=== PATIENT | male | born 1935 | race Caucasian/White ===

== ENCOUNTER 2022-09-15 13:54 | Inpatient (IN) | payer MEDICARE, MEDICAID ==
[~2022-09-15] VITALS: Ht 165.1 cm; Wt 46.3 kg
--- NOTE | 2022-09-15 14:00 | NUR ---
RECEIVED PT 87 YRS MALE CAME FROM HOME [facility] CALLED FOR PT POOR APPTED AND REFUSED EAT AND ELEVATED BLOOD SUGER
--- NOTE | 2022-09-15 14:45 | NUR ---
ACCU CHECK DONE 529 DR. SCHMIDT NOTEFED
--- NOTE | 2022-09-15 14:55 | NUR ---
TO CT SCAN OF HEAD VIA PRISCILA
[2022-09-15] MEDS ORDERED: IV NS 0.9% 1,000 ML BAG IV ONE ×2 (15:00→17:00)
--- NOTE | 2022-09-15 15:43 | NUR ---
COVED SWAB SENT TO LAB
[2022-09-15 16:23] LABS: BASOPHILS % (AUTO) 0.4 % (0.0-2.0); EOSINOPHILS % (AUTO) 0.3 % (0.0-6.0); HEMATOCRIT 42 % (39-51); HEMOGLOBIN 13.9 g/dL (13.5-17.5); LYMPHOCYTES # (AUTO) 1.3 K/uL (0.8-4.8); LYMPHOCYTES % (AUTO) 18.4 % (20.0-44.0); MEAN CORPUSCULAR HGB CONC 33 g/dl (31.0-36.0); MEAN CORPUSCULAR VOLUME 94 fL (80-96); MONOCYTES # (AUTO) 0.6 K/uL (0.1-1.30); MONOCYTES % (AUTO) 8.2 % (2.0-12.0); NEUTROPHILS # (AUTO) 5.1 K/uL (1.8-8.9); NEUTROPHILS % (AUTO) 72.7 % (43.0-81.0); PLATELET COUNT (AUTO) 196 K/uL (150-450); RED BLOOD CELL COUNT(AUTO) 4.43 MIL/uL (4.5-6.0); WHITE BLOOD COUNT (AUTO) 6.9 K/uL (4.3-11.0)
[2022-09-15 16:41] LABS: ALANINE AMINOTRANSFERASE 14 U/L (12-78); ALBUMIN 3.5 g/dL (3.4-5.0); ALKALINE PHOSPHATASE 132 U/L (46-116); ASPARTATE AMINOTRANSFERASE 9 U/L (15-37); BILIRUBIN,DIRECT 0.2 mg/dL (0.0-0.2); BILIRUBIN,TOTAL 0.7 mg/dL (0.2-1.0); CALCIUM, SERUM 9.2 mg/dL (8.5-10.1); CARBON DIOXIDE 22 mmol/L (21-32); CHLORIDE 91 mmol/L (98-107); CREATININE 3.6 mg/dL (0.6-1.3); MAGNESIUM 2.6 mg/dL (1.8-2.4); PHOSPHORUS 5.5 mg/dL (2.5-4.9); POTASSIUM 4.7 mmol/L (3.5-5.1); SODIUM SERUM 127 mmol/L (136-145); TOTAL PROTEIN, SERUM 7.4 g/dL (6.4-8.2); UREA NITROGEN, BLOOD 79 mg/dL (7-18)
[2022-09-15 16:53] LABS: ALCOHOL, BLOOD < 3 mg/dL (0-0); GLUCOSE 558 mg/dL (74-106); SERUM AMMONIA 10 umol/L (11-32)
[2022-09-15] MEDS ORDERED: INSULIN REGULAR, HUMAN 100 UNIT/ML 10 ML VIAL IV ONE (17:00)
--- NOTE | 2022-09-15 17:00 | NUR ---
CALLED NURSING SUP REGARDING PT BED
[2022-09-15 17:20] LABS: MAGNESIUM 2.2 mg/dL (1.8-2.4)
[2022-09-15 17:30] LABS: THYROID STIMULATING HORMONE 1.967 uIU/mL (0.358-3.74)
[2022-09-15] MEDS ORDERED: ONDANSETRON HCL/PF 4 MG/2 ML VIAL IVP PRN (17:30)
[2022-09-15] MEDS ORDERED: MAG HYDROX/AL HYDROX/SIMETH 30 ML UDC PO PRN (17:30)
[2022-09-15] MEDS ORDERED: ZOLPIDEM TARTRATE 5 MG TABLET PO PRN (17:30)
[2022-09-15] MEDS ORDERED: MAGNESIUM HYDROXIDE 30 ML UDC PO PRN (17:30)
[2022-09-15] MEDS ORDERED: ACETAMINOPHEN 325 MG TABLET PO PRN (17:30)
[2022-09-15] MEDS ORDERED: Z GUARD REMEDY 4 OZ OINT TP PRN (17:30)
[2022-09-15] MEDS ORDERED: DEXTROSE 50%-WATER 50 ML DISP.SYRIN IV PRN (17:30)
[2022-09-15] MEDS ORDERED: INSULIN REGULAR, HUMAN 100 UNIT/ML 10 ML VIAL ONE (17:32)
--- NOTE | 2022-09-15 17:40 | NUR ---
UA SENT TO LAB
[2022-09-15] MEDS: BLOOD SUGAR DIAGNOSTIC 1 EACH STRIP VI SCH ×2 (18:30→22:11)
--- NOTE | 2022-09-15 18:30 | NUR ---
[facility] AT BED SIDE RODERICK MORENO ( [phone]
[2022-09-15] MEDS: IV NS 0.9% 1,000 ML IV SCH (18:33)
[2022-09-15 18:47] LABS: BILIRUBIN,URINE NEGATIVE (NEGATIVE); COLOR,URINE YELLOW (YELLOW); LEUKOCYTE ESTERASE ,URINE NEGATIVE (NEGATIVE); NITRITE, URINE NEGATIVE (NEGATIVE); PH,URINE 5.5 (5.0-8.0); PROTEIN,URINE TRACE mg/dl (NEGATIVE); UGLUCOSE 3+ mg/dL (NEGATIVE); UROBILINOGEN,URINE 0.2 EU/dL (0.2)
[2022-09-15 18:55] LABS: MAGNESIUM 2.1 mg/dL (1.8-2.4); PHOSPHORUS 3.7 mg/dL (2.5-4.9)
--- NOTE | 2022-09-15 19:06 | NUR ---
BED GIVEN 119-2
--- NOTE | 2022-09-15 19:20 | NUR ---
HAND OFF CATRINE RN
--- NOTE | 2022-09-15 19:42 | NUR ---
REPORT GIVEN TO CIELO RUELAS. PT GOING TO 117-2.
[2022-09-15 20:00] VITALS: BP 133/62
--- NOTE | 2022-09-15 20:00 | NUR ---
CANE FLUME CHUTE OPERATOR NOTES: REPORT RECEIVED FROM GLOVE TURNER AND FORMERCIELO COSTELLO. PT TRANSFERRED TO [facility] FROM ER VIA [facility]. PLACED IN ROOM 117 BED 2. PT AWAKE, ALERT/ORIENTED X 1-2 AND VERBALLY RESPONSIVE. [place] SPEAKING ONLY. ON ROOM AIR AND PT TOLERATED WELL. O2 SAT 98%. IV ACCESS ON LFA#20G INTACT AND PATENT. NO S/S OF INFILTRATIONS. NO C/O PAIN OR DISCOMFORT. NO ACUTE DISTRESS. ASSESSED WHOLE BODY. NO OPEN SKIN OR SKIN DISCOLORATIONS. ALL SAFETY MEASURES IN PLACE. SIDE RAILS UP X3, BED IN LOWEST POSITION AND LOCKED. PLACE CALL LIGHT WITH IN REACH. WILL CONTINUE TO MONITOR
[2022-09-15 20:05] LABS: BACTERIA,URINE None seen /HPF (None Seen); SQUAMOUS EPITHELIAL CELL,UR 0-2 /HPF (None Seen); WBC,URINE 0-2 /HPF (0-3)
[2022-09-15] MEDS: *INSULIN REGULAR(HUMULIN R)HUM 100 UNIT/ML VIAL SQ PRN (22:11)
--- NOTE | 2022-09-15 22:12 | NUR ---
RN NOTES: PT'S BLOOD SUGAR 94. NO COVERAGE GIVEN. NO S/S OF HYPER/HYPOGLYCEMIA. WILL CONTINUE TO MONITOR
[2022-09-16] VITALS: BP 140/68
[2022-09-16] MEDS: IV NS 0.9% 1,000 ML IV SCH (03:55)
[2022-09-16 04:00] VITALS: BP 136/61
--- NOTE | 2022-09-16 06:45 | NUR ---
RN CLOSING NOTES: PT AWAKE, ALERT/ORIENTED X 1-2 WITH CONFUSION AND VERBALLY RESPONSIVE. [place] SPEAKING ONLY. ON ROOM AIR AND PT TOLERATED WELL. O2 SAT 98%. IV ACCESS ON LFA#20G INTACT AND PATENT. NO S/S OF INFILTRATIONS. NS RUNNING AT 100CC/HR. NO C/O PAIN OR DISCOMFORT. NO ACUTE DISTRESS. ALL DUE MED GIVEN ORDERED. PT HAD EPISODES OF GETTING UP FROM THE UNASSISTED, TRYING TO REMOVE THE TELE MONITORING AND IV ACCESS. APPLIED BILATERAL SOFT RESTRAINT. RELEASED Q 2 HOURS TO CHECK CIRCULATION. PT HAD 3X LOOSE STOOL. COLLECTED STOOL FOR C-DIFF. ALL SAFETY MEASURES IN PLACE. SIDE RAILS UP X3, BED IN LOWEST POSITION AND LOCKED. PLACE CALL LIGHT WITH IN REACH. WILL ENDORSE TO MORNING SHIFT NURSE.
--- NOTE | 2022-09-16 07:24 | NUR ---
READINESS PARAPROFESSIONAL OPENING NOTES: PATIENT RECEIVED SLEEPING. ON ROOM AIR WITH NO S/S OF SOB OR RESPIRATORY DISTRESS. BREATHING EVEN AND UNLABORED. ON TELE MONITOR. IV ACCESS ON LFA#20G INTACT AND PATENT RUNNING NS A2 100CC/HR. CONDOM CATHETER IN PLACE DRAINING URINE TO GRAVITY. BILATERAL WRIST RESTRAINTS IN PLACE. ALL SAFETY MEASURES IN PLACE WITH SIDE RAILS UP X3, BED IN LOWEST POSITION AND LOCKED AND CALL LIGHT WITH IN REACH. WILL CONTINUE TO MONITOR.
[2022-09-16 07:29] LABS: BASOPHILS % (AUTO) 0.3 % (0.0-2.0); EOSINOPHILS % (AUTO) 0.5 % (0.0-6.0); HEMATOCRIT 36 % (39-51); HEMOGLOBIN 12.2 g/dL (13.5-17.5); LYMPHOCYTES # (AUTO) 1.3 K/uL (0.8-4.8); MEAN CORPUSCULAR HGB CONC 34 g/dl (31.0-36.0); MEAN CORPUSCULAR VOLUME 93 fL (80-96); MONOCYTES # (AUTO) 0.7 K/uL (0.1-1.30); NEUTROPHILS # (AUTO) 6.5 K/uL (1.8-8.9); NEUTROPHILS % (AUTO) 76.2 % (43.0-81.0); PLATELET COUNT (AUTO) 189 K/uL (150-450); RED BLOOD CELL COUNT(AUTO) 3.89 MIL/uL (4.5-6.0); WHITE BLOOD COUNT (AUTO) 8.5 K/uL (4.3-11.0)
[2022-09-16 07:51] LABS: CALCIUM, SERUM 8.4 mg/dL (8.5-10.1); CARBON DIOXIDE 22 mmol/L (21-32); CHLORIDE 104 mmol/L (98-107); CREATININE 2.2 mg/dL (0.6-1.3); GLUCOSE 261 mg/dL (74-106); PHOSPHORUS 3.1 mg/dL (2.5-4.9); POTASSIUM 3.5 mmol/L (3.5-5.1); SODIUM SERUM 138 mmol/L (136-145); UREA NITROGEN, BLOOD 55 mg/dL (7-18)
[2022-09-16] MEDS: BLOOD SUGAR DIAGNOSTIC 1 EACH STRIP VI SCH ×4 (07:57→22:07)
[2022-09-16 08:00] VITALS: BP 162/90
--- NOTE | 2022-09-16 09:55 | NUR ---
PATIENT PULLED OFF CONDOM CATHETER. WAS ABLE TO URINATE IN DIAPER.
--- NOTE | 2022-09-16 11:07 | NUR ---
INSULIN NOT ADMINISTERED IN AM DUE TO INSULIN NOT BEING AVAILABLE. PHARMACY WAS NOTIFIED. DID NOT RECEIVE UNTIL CLOSE TO NEXT ACCU CHECK SCHEDULED.
[2022-09-16] MEDS: INSULIN REGULAR, HUMAN 100 UNIT/ML 3 ML VIAL SQ PRN ×2 (11:32→16:47)
[2022-09-16 15:01] LABS: OCCULT BLOOD STOOL NEGATIVE (NEGATIVE)
[2022-09-16] MEDS: IV NS 0.9% 1,000 ML IV PRN (15:03)
[2022-09-16] MEDS ORDERED: GLIP5TAB13 PO (15:29)
[2022-09-16] MEDS ORDERED: ATOR10TA PO (15:29)
[2022-09-16] MEDS ORDERED: [UNRECOGNIZED DRUG - REMARK] PO (15:30)
--- NOTE | 2022-09-16 15:46 | NUR ---
PATIENT DOES NOT HAVE ADVANCED DIRECTIVE OR DPOA ON FILE. SOCIAL SERVICE CONSULT ORDERED.
[2022-09-16 16:00] VITALS: BP 110/70
[2022-09-16] MEDS: GLUCERNA SHAKE 237 ML CAN PO SCH (17:37)
--- NOTE | 2022-09-16 18:19 | NUR ---
MS RN CLOSING NOTES: PATIENT IN BED RESTING WITH FAMILY AT BEDSIDE. ALERT AND ORIENTED X1. ON ROOM AIR WITH NO S/S OF SOB OR RESPIRATORY DISTRESS. BREATHING EVEN AND UNLABORED. IV ACCESS ON LFA#20G INTACT AND PATENT RUNNING NS A2 100 ML/HR. BILATERAL WRIST RESTRAINTS IN PLACE WITH SKIN INTACT AND WARM TO TOUCH. ALL DUE MEDS GIVEN AND PATIENT KEPT CLEAN AND COMFORTABLE. ALL SAFETY MEASURES IN PLACE WITH SIDE RAILS UP X3, BED IN LOWEST AND LOCKED POSITION AND CALL LIGHT WITHIN REACH. WILL ENDORSE TO PM SHIFT FOR JAMARCUS.
[2022-09-16 20:00] VITALS: BP 176/75
[2022-09-16] MEDS: CLONIDINE HCL 0.1 MG TABLET PO PRN (21:47)
--- NOTE | 2022-09-16 21:47 | NUR ---
RN NOTE PT NOTED TO HAVE BP OF 176/75, HR 70. PT ADMINISTERED CLONIDINE 0.1 MG. WILL REASSESS BP
[2022-09-16] MEDS ORDERED: INSULIN GLARGINE, 100 UNIT/ML CARTRIDGE SQ SCH (22:00)
--- NOTE | 2022-09-16 23:17 | NUR ---
MS RN OPENING NOTE PT RECEIVED IN BED, AWAKE, A/O X3, BHUTANESE-SPEAKING BUT ABLE TO SPEAK VERY LITTLE ARMENIAN. PT ON ROOM AIR WITH CURRENT O2SAT OF 98%; NO S/S OF RESP DISTRESS, NO SOB OR COUGH, NON-LABORED AND EQUAL BREATHING. IV ACCESS ON LFA 20G WITH NS INFUSING AT 100 ML/HR. NOTED TO HAVE ELEVATED BP; PT ADMINISTERED CLONIDINE; WILL RE-ASSESS; OTHERWISE VITAL SIGNS ARE STABLE. BED IN LOWEST POSITION, CALL LIGHT WITHIN REACH, SIDE RAILS UP X3. WILL CONTINUE TO MONITOR THROUGHOUT THE NIGHT.
--- NOTE | 2022-09-17 00:09 | NUR ---
RN NOTE BP RECHECKED WITH RESULT OF 131/69
[2022-09-17] MEDS: IV NS 0.9% 1,000 ML IV PRN ×2 (01:16→16:58)
[2022-09-17 04:00] VITALS: BP 139/67
--- NOTE | 2022-09-17 06:52 | NUR ---
MS RN CLOSING NOTE PT REMAINS IN BED, ASLEEP BUT EASILY AROUSABLE, A/O X3, CALM, COOPERATIVE. CONTINUES TO BE ON ROOM AIR WITH O2SAT STABLE AT 98% THROUGHOUT THE NIGHT. VSS, WITH NO SIGNIFICANT CHANGES; BP WNL AFTER ADMINISTERING CLONIDINE. BILATERAL SOFT WRIST RESTRAINTS REMAIN IN PLACE WITH NO SIGNS OF IMPAIRED SKIN OR CIRCULATION; PT PROVIDED WITH RELEASE OF RESTRAINTS, FLUIDS AND HYGIENE. LFA 20G INTACT AND PATENT WITH NS INFUSING AT 100 ML/HR. ALL DUE MEDS ADMINISTERED DURING THE NIGHT. BED IN LOWEST POSITION, CALL LIGHT WITHIN REACH, SIDE RAILS UP X3. WILL ENDORSE TO DAYSHIFT NURSE TO CONTINUE CARE.
--- NOTE | 2022-09-17 07:32 | NUR ---
MS RN OPENING NOTE PATIENT RECEIVED IN BED AWAKE. CALM AND COOPERATIVE. ON ROOM AIR BREATHING EVEN AND UNLABORED, WITH NO S/S OF SOB OR RESPIRATORY DISTRESS. BILATERAL SOFT WRIST RESTRAINTS REMAIN IN PLACE WITH NO SIGNS OF IMPAIRED SKIN OR CIRCULATION. LFA 20G INTACT AND PATENT WITH NS INFUSING AT 100 ML/HR. BED IN LOWEST POSITION, CALL LIGHT WITHIN REACH, SIDE RAILS UP X3. WILL CONTINUE TO MONITOR.
[2022-09-17 07:53] LABS: BASOPHILS % (AUTO) 0.5 % (0.0-2.0); EOSINOPHILS % (AUTO) 0.4 % (0.0-6.0); HEMATOCRIT 32 % (39-51); HEMOGLOBIN 11.1 g/dL (13.5-17.5); LYMPHOCYTES # (AUTO) 1.7 K/uL (0.8-4.8); LYMPHOCYTES % (AUTO) 19.5 % (20.0-44.0); MEAN CORPUSCULAR HGB CONC 35 g/dl (31.0-36.0); MEAN CORPUSCULAR VOLUME 92 fL (80-96); MONOCYTES # (AUTO) 0.8 K/uL (0.1-1.30); MONOCYTES % (AUTO) 8.8 % (2.0-12.0); NEUTROPHILS # (AUTO) 6.1 K/uL (1.8-8.9); NEUTROPHILS % (AUTO) 70.8 % (43.0-81.0); PLATELET COUNT (AUTO) 175 K/uL (150-450); RED BLOOD CELL COUNT(AUTO) 3.51 MIL/uL (4.5-6.0); WHITE BLOOD COUNT (AUTO) 8.6 K/uL (4.3-11.0)
[2022-09-17 08:00] VITALS: BP 162/80
[2022-09-17] MEDS: BLOOD SUGAR DIAGNOSTIC 1 EACH STRIP VI SCH ×4 (08:18→21:29)
[2022-09-17] MEDS: GLUCERNA SHAKE 237 ML CAN PO SCH ×2 (08:29→17:00)
--- NOTE | 2022-09-17 08:31 | NUR ---
PATIENT HAD BLOOD SUGAR OF 45, THEN 49. GAVE 8 OZ OF ORANGE JUICE. BLOOD SUGAR INCREASED TO 58. ADMINISTERED 10% GLUCOSE AT 50 ML/HR. DR CEFERINO NOGUEIRA. PER ORDER, WILL ADMINISTER WHOLE BAG OF 250 ML AND DC LANTUS. Addendum: 09/17/22 at 0834 by SHELTON BAILEY RN 10% DEXTROSE*
[2022-09-17 08:34] LABS: CALCIUM, SERUM 8.1 mg/dL (8.5-10.1); CARBON DIOXIDE 25 mmol/L (21-32); CHLORIDE 108 mmol/L (98-107); CREATININE 1.4 mg/dL (0.6-1.3); GLUCOSE 63 mg/dL (74-106); SODIUM SERUM 141 mmol/L (136-145); UREA NITROGEN, BLOOD 27 mg/dL (7-18)
[2022-09-17 08:36] LABS: POTASSIUM 2.6 mmol/L (3.5-5.1)
--- NOTE | 2022-09-17 08:39 | NUR ---
PATIENT HAS CRITICAL LAB OF POTASSIUM 2.6. DR DE LA VEGA NOTIFIED.
--- NOTE | 2022-09-17 10:23 | NUR ---
DR DE LA VEGA CONTACTED AGAIN VIA TELEPHONE REGARDING CRITICAL LAB OF POTASSIUM 2.6. DID NOT ANSWER. STILL AWAITING RESPONSE.
[2022-09-17] MEDS: *INSULIN REGULAR(HUMULIN R)HUM 100 UNIT/ML VIAL SQ PRN ×2 (11:29→22:22)
--- NOTE | 2022-09-17 11:29 | NUR ---
PATIENT ACCU CHECK IS 197. HELD INSULIN DUE TO EPISODE OF HYPOGLYCEMIA. WILL RECHECK.
[2022-09-17] MEDS ORDERED: POTASSIUM CHLORIDE 20 MEQ TAB.PRT.SR PO SCH (14:30)
[2022-09-17 16:00] VITALS: BP 157/71
[2022-09-17] MEDS: INSULIN REGULAR, HUMAN 100 UNIT/ML 3 ML VIAL SQ PRN (17:02)
[2022-09-17] MEDS ORDERED: ATORVASTATIN 10 MG TABLET PO SCH (18:00)
--- NOTE | 2022-09-17 19:35 | NUR ---
MS RN OPENING NOTE PATIENT AWAKE IN BED, ALERT/ORIENTED X 1-2, FAMILY AT BEDSIDE. PATIENT STABLE ON RA, NO S/S OF DISTRESS OR SOB NOTED, BREATHING EVEN AND UNLABORED. RESTRAINTS OFF AT THIS TIME PER FAMILY REQUEST. IV ACCESS ON RFA #22G INTACT AND INFUSING NS @ 100 ML/HR. SAFETY MEASURES IN PLACE: CALL LIGHT WITHIN REACH, SIDE RAILS UP X 3, BED LOCKED IN LOWEST POSITION, HOB ELEVATED, BED ALARM ON. WILL CONTINUE TO MONITOR PATIENT
--- NOTE | 2022-09-17 19:46 | NUR ---
MS CIELO CLOSING NOTE PATIENT IN BED WITH FAMILY AT BEDSIDE. CALM AND COOPERATIVE. ON ROOM AIR BREATHING EVEN AND UNLABORED, WITH NO S/S OF SOB OR RESPIRATORY DISTRESS. BILATERAL SOFT WRIST RESTRAINTS REMAIN IN PLACE WITH NO SIGNS OF IMPAIRED SKIN OR CIRCULATION. RFA 22G INTACT AND PATENT WITH NS INFUSING AT 100 ML/HR. ALL DUE MEDS GIVEN AND PATIENT KEPT CLEAN AND COMFORTABLE. BED IN LOWEST POSITION, CALL LIGHT WITHIN REACH, SIDE RAILS UP X3. WILL CONTINUE TO MONITOR. Addendum: 09/17/22 at 1947 by SHELTON BAILEY RN WILL ENDORSE TO ONCOMING SHIFT FOR JAMARCUS. Addendum: 09/18/22 at 0744 by SHELTON BAILEY RN BILATERAL SOFT WRIST RESTRAINTS WERE REMOVED IN THE MORNING TO TRIAL FOR DISCONTINUATION.
[2022-09-17 20:00] VITALS: BP 129/51
--- NOTE | 2022-09-17 21:50 | NUR ---
RN NOTE PATIENT'S BLOOD SUGAR 48, GIVEN 2 CUPS OF ORANGE JUICE AND GLUCERNA SHAKE. WILL REASSESS BLOOD SUGAR
[2022-09-17] MEDS ORDERED: INSULIN GLARGINE, 100 UNIT/ML CARTRIDGE SQ SCH (22:00)
--- NOTE | 2022-09-17 22:20 | NUR ---
RN NOTE REASSESSED PATIENT'S BLOOD SUGAR, NOW 107. WILL CONTINUE TO MONITOR PATIENT
[2022-09-18] MEDS: IV NS 0.9% 1,000 ML IV PRN (03:05)
[2022-09-18 04:00] VITALS: BP 180/75
[2022-09-18] MEDS: CLONIDINE HCL 0.1 MG TABLET PO PRN (05:06)
--- NOTE | 2022-09-18 07:38 | NUR ---
MS RN OPENING NOTE PATIENT RECEIVED IN BED SLEEPING. ON ROOM AIR BREATHING EVEN AND UNLABORED, WITH NO S/S OF SOB OR RESPIRATORY DISTRESS. RFA 22G INTACT AND PATENT WITH NS INFUSING AT 100 ML/HR. BED IN LOWEST POSITION, CALL LIGHT WITHIN REACH, SIDE RAILS UP X3. WILL CONTINUE TO MONITOR.
--- NOTE | 2022-09-18 07:42 | NUR ---
MS RN CLOSING NOTE PATIENT SLEEPING IN BED, ALERT/ORIENTED X 1-2. PATIENT STABLE ON RA, NO S/S OF DISTRESS OR SOB NOTED, BREATHING EVEN AND UNLABORED. RESTRAINTS REMAINED OFF ALL SHIFT, PT DID NOT ATTEMPT TO GET OUT OF BED OR PULL LINES. IV ACCESS ON RFA #22G INTACT AND INFUSING NS @ 100 ML/HR. MEDICATIONS GIVEN ORDERED, PT NEEDS MET THROUGHOUT SHIFT, PT TURNED AND REPOSITIONED. PATIENT HAD 2 EPISODES OF DIARRHEA THIS SHIFT. SAFETY MEASURES IN PLACE: CALL LIGHT WITHIN REACH, SIDE RAILS UP X 3, BED LOCKED IN LOWEST POSITION, HOB ELEVATED, BED ALARM ON. ENDORSED TO DAYSHIFT RN FOR CONTINUITY OF CARE
[2022-09-18 07:46] LABS: BASOPHILS % (AUTO) 0.5 % (0.0-2.0); HEMATOCRIT 24 % (39-51); HEMOGLOBIN 8.2 g/dL (13.5-17.5); LYMPHOCYTES # (AUTO) 1.2 K/uL (0.8-4.8); MEAN CORPUSCULAR HGB CONC 34 g/dl (31.0-36.0); MEAN CORPUSCULAR VOLUME 94 fL (80-96); MONOCYTES # (AUTO) 0.5 K/uL (0.1-1.30); MONOCYTES % (AUTO) 9.9 % (2.0-12.0); NEUTROPHILS # (AUTO) 3.6 K/uL (1.8-8.9); NEUTROPHILS % (AUTO) 66.6 % (43.0-81.0); PLATELET COUNT (AUTO) 131 K/uL (150-450); WHITE BLOOD COUNT (AUTO) 5.5 K/uL (4.3-11.0)
[2022-09-18 07:53] LABS: CREATININE 1.3 mg/dL (0.6-1.3); POTASSIUM 3.1 mmol/L (3.5-5.1)
[2022-09-18 08:00] VITALS: BP 122/54
[2022-09-18] MEDS: BLOOD SUGAR DIAGNOSTIC 1 EACH STRIP VI SCH (08:22)
[2022-09-18] MEDS: GLUCERNA SHAKE 237 ML CAN PO SCH (08:22)
[2022-09-18] MEDS: *INSULIN REGULAR(HUMULIN R)HUM 100 UNIT/ML VIAL SQ PRN (08:23)
[2022-09-18] MEDS ORDERED: POTASSIUM CHLORIDE 20 MEQ TAB.PRT.SR PO ONE (09:30)
--- NOTE | 2022-09-18 11:35 | NUR ---
PATIENT WILL BE DISCHARGED TODAY AT NOON. PT REQUESTED WHEELCHAIR FOR PATIENT TO TAKE HOME. CONTACTED [employer] WHO PROVIDED A WHEEL CHAIR.
--- NOTE | 2022-09-18 12:18 | NUR ---
PATIENT WAS DISCHARGED IN STABLE CONDITION. INSTRUCTIONS ON FOLLOW-UP PROVIDED. PATIENT EDUCATION PROVIDED.
== END 2022-09-18 12:10 | disposition home or self-care (01) | DRG 637 ==
LOC: ER 14:40 → TELE1 19:14 → MEDSG1 09-16 08:45
PROVIDERS: ADMIT Internal Medicine; ATTEND Internal Medicine
DX: E11.00 Type 2 diabetes mellitus with hyperosmolarity without nonketotic hyperglycemic-hyperosmolar coma (NKHHC) (principal); G93.41 Metabolic encephalopathy; N17.0 Acute kidney failure with tubular necrosis; E87.20 Acidosis, unspecified; E87.1 Hypo-osmolality and hyponatremia; E86.0 Dehydration; E11.65 Type 2 diabetes mellitus with hyperglycemia; Z20.822 Contact with and (suspected) exposure to COVID-19; I10 Essential (primary) hypertension; E86.1 Hypovolemia; E83.39 Other disorders of phosphorus metabolism; E83.41 Hypermagnesemia; E78.00 Pure hypercholesterolemia, unspecified; E87.6 Hypokalemia; Z91.148 Patient's other noncompliance with medication regimen for other reason
CPT/HCPCS: 36415; 70450-TC; 71045-TC; 76770-TC; 80048-TC; 80076-TC; 81001; 82140-TC; 82272-TC; 82962-TC; 83605-TC; 83735-TC; 84100-TC; 84443-TC; 84484-TC; 85025-TC; 85730-TC; 87040-TC; 87081-TC; 87086-TC; 97112-TC; 97116-TC; 97530-TC; A4223; A4349; C9803; G0378; G0480; J1815; J7030

== ENCOUNTER 2022-09-26 10:38 | Outpatient (CLI) | payer MEDICARE, OTHER ==
[~2022-09-26 10:38] MED LIST: ATOR10TA PO; GLIP5TAB13 PO; [UNRECOGNIZED DRUG - REMARK] PO
== END 2022-09-26 23:59 | disposition home or self-care (01) ==
LOC: MSC 10:38
PROVIDERS: ATTEND Internal Medicine
DX: Z09 Encounter for follow-up examination after completed treatment for conditions other than malignant neoplasm (principal); E11.9 Type 2 diabetes mellitus without complications; Z79.84 Long term (current) use of oral hypoglycemic drugs; G93.41 Metabolic encephalopathy; E83.39 Other disorders of phosphorus metabolism; E83.42 Hypomagnesemia